=== PATIENT | female | born 1960 | race African-American/Black ===

== ENCOUNTER 2016-12-18 11:28 | Emergency (ER) | payer MEDICAID, OTHER ==
[~2016-12-18] VITALS: Ht 170.2 cm; Wt 77.1 kg
[2016-12-18 12:12] VITALS: BP 129/76
== END 2016-12-18 13:01 | disposition home or self-care (01) ==
LOC: ER 11:30
DX: M79.602 Pain in left arm (principal); F41.9 Anxiety disorder, unspecified; F31.9 Bipolar disorder, unspecified; F17.200 Nicotine dependence, unspecified, uncomplicated
CPT/HCPCS: 99283; A4606; Z7610

== ENCOUNTER 2017-03-13 22:57 | Emergency (ER) | payer OTHER ==
[~2017-03-13] VITALS: Ht 175.3 cm; Wt 65.8 kg
[2017-03-13 23:04] VITALS: BP 160/88
[2017-03-14] MEDS ORDERED: ALBUTEROL FS 2.5 MG/0.5 ML VIAL.NEB ONE (00:18)
[2017-03-14] MEDS ORDERED: ALBUTEROL FS 2.5 MG/0.5 ML VIAL.NEB NEB ONE (00:30)
== END 2017-03-14 01:50 | disposition home or self-care (01) ==
LOC: ER 23:01
DX: J40 Bronchitis, not specified as acute or chronic (principal); I10 Essential (primary) hypertension; F41.9 Anxiety disorder, unspecified; F31.9 Bipolar disorder, unspecified; F17.200 Nicotine dependence, unspecified, uncomplicated; Z90.5 Acquired absence of kidney
CPT/HCPCS: 71045; 87804 ×2; 94640; 99285; A4606; Z7610; 87400